=== PATIENT | female | born 1990 | race American Indian/Alaskan Native ===

== ENCOUNTER 2019-06-12 00:11 | Emergency (ER) | payer SELFPAY ==
[2019-06-12 01:18] LABS: Basophils # (Auto) 0.1 K/mm3 (0.0-0.1); Basophils % (Auto) 0.8 % (0.0-1.8); Eosinophils # (Auto) 0.1 K/mm3 (0.0-0.4); Eosinophils % (Auto) 1.2 % (0.0-4.3); Hematocrit 28.2 % (30.3-42.9); Lymphocytes # (Auto) 2.1 K/mm3 (1.2-5.4); Lymphocytes % (Auto) 26.9 % (13.4-35.0); Mean Corpuscular HGB Conc 36 % (30-34); Mean Corpuscular Volume 80 fl (79-97); Monocytes # (Auto) 0.6 K/mm3 (0.0-0.8); Monocytes % (Auto) 7.5 % (0.0-7.3); Platelet Count 227 K/mm3 (140-440); Red Blood Count 3.54 M/mm3 (3.65-5.03); Red Cell Distribution Width 13.9 % (13.2-15.2)
[2019-06-12 01:19] LABS: Bilirubin,Urine NEG (Negative); Blood,Urine NEG (Negative); Color,Urine Yellow (Yellow); Mucus,Urine 1+ /HPF; Protein,Urine <15 mg/dL mg/dL (Negative); Urobilinogen,Urine < 2.0 mg/dL (<2.0)
[2019-06-12 01:40] LABS: Alanine Aminotransferase 6 units/L (7-56); Albumin 3.3 g/dL (3.9-5); BUN/Creatinine Ratio 17; Blood Urea Nitrogen 5 mg/dL (7-17); Calcium 9.2 mg/dL (8.4-10.2); Hemolysis Index 0
[2019-06-12] MEDS ORDERED: ZOFRAN IV ONE (02:48)
[2019-06-12] MEDS ORDERED: NACL 0.9% 1000 ML 1,000 ML IV ONE (02:48)
--- NOTE | 2019-06-12 03:06 | Emergency Department Report ---
ED Abdominal Pain HPI - General Chief Complaint: Abdominal Pain Stated Complaint: ABD PAIN/EMESIS Time Seen by Provider: 06/12/19 02:33 Source: patient Mode of arrival: Ambulatory Limitations: No Limitations - History of Present Illness Initial Comments: pt is a 29-year-old female presents the emergency room with complaints of suprapubic abdominal cramping that began today after eating pizza from [employer]. She states she has associated nausea and vomiting. She states she has had approximately 5 episodes of vomiting. She denies any urinary symptoms, fever, or diarrhea. the patient denies any vaginal bleeding. she does not report any vaginal discharge or vaginal complaints. States her last menstrual cycle was in January but states she is not sure if she is . She states she has a past medical history of mental health issues. pt states she has an allergy to ibuprofen and Maalox. /P:3/A:1 - Related Data Allergies Allergy/AdvReac Type Severity Reaction Status Date / Time ibuprofen [From Motrin] Allergy Vomiting Verified 06/12/19 00:15 maalox Allergy Vomiting Uncoded 06/12/19 00:15 ED Review of Systems ROS: Stated complaint: ABD PAIN/EMESIS Other details as noted in HPI Comment: All other systems reviewed and negative ED Past Medical Hx - Past Medical History Previous Medical History?: Yes Hx Psychiatric Treatment: Yes (anxiety, depression, PTSD, Schizophrenia) - Surgical History Past Surgical History?: Yes Hx Cholecystectomy: Yes Additional Surgical History: Csection x 2 - Social History Smoking Status: Current Every Day Smoker ED Physical Exam - General Limitations: No Limitations General appearance: alert, in no apparent distress - Head Head exam: Present: atraumatic, normocephalic - Eye Eye exam: Present: normal appearance - ENT ENT exam: Present: mucous membranes moist - Respiratory Respiratory exam: Present: normal lung sounds bilaterally. Absent: respiratory distress, wheezes, rales, rhonchi, stridor, accessory muscle use, decreased breath sounds, prolonged expiratory - Cardiovascular Cardiovascular Exam: Present: regular rate, normal rhythm, normal heart sounds. Absent: systolic murmur, diastolic murmur, rubs, gallop - GI/Abdominal GI/Abdominal exam: Present: soft, normal bowel sounds, other (gravid ). Absent: tenderness, guarding, rebound, rigid - Neurological Exam Neurological exam: Present: alert, oriented X3 - Psychiatric Psychiatric exam: Present: normal affect, normal mood - Skin Skin exam: Present: warm, dry, intact ED Course Vital Signs 06/12/19 00:16 Temperature 98.1 F Pulse Rate 103 H Respiratory 18 Rate Blood Pressure 109/72 O2 Sat by Pulse 100 Oximetry ED Medical Decision Making - Lab Data Result diagrams: 06/12/19 01:07 06/12/19 01:07 Lab Results 06/12/19 06/12/19 06/12/19 Range/Units 01:05 01:07 01:07 WBC 7.9 (4.5-11.0) K/mm3 RBC 3.54 L (3.65-5.03) M/mm3 Hgb 10.0 L (10.1-14.3) gm/dl Hct 28.2 L (30.3-42.9) % MCV 80 (79-97) fl MCH 28 (28-32) pg MCHC 36 H (30-34) % RDW 13.9 (13.2-15.2) % Plt Count 227 (140-440) K/mm3 Lymph % (Auto) 26.9 (13.4-35.0) % Bet[place] % (Auto) 7.5 H (0.0-7.3) % Eos % (Auto) 1.2 (0.0-4.3) % Baso % (Auto) 0.8 (0.0-1.8) % Lymph # 2.1 (1.2-5.4) K/mm3 Bethel # 0.6 (0.0-0.8) K/mm3 Eos # 0.1 (0.0-0.4) K/mm3 Baso # 0.1 (0.0-0.1) K/mm3 Seg Neutrophils % 63.6 (40.0-70.0) % Seg Neutrophils # 5.0 (1.8-7.7) K/mm3 Sodium (137-145) mmol/L Potassium (3.6-5.0) mmol/L Chloride (98-107) mmol/L Carbon Dioxide (22-30) mmol/L Anion Gap mmol/L BUN (7-17) mg/dL Creatinine (0.7-1.2) mg/dL Estimated GFR ml/min BUN/Creatinine Ratio % Glucose (65-100) mg/dL Calcium (8.4-10.2) mg/dL Total Bilirubin (0.1-1.2) mg/dL AST (5-40) units/L ALT (7-56) units/L Alkaline Phosphatase (35-129) units/L Total Protein (6.3-8.2) g/dL Albumin (3.9-5) g/dL Albumin/Globulin Ratio % Lipase (13-60) units/L HCG, Qual Positive (Negative) HCG, Quant (0-4) mIU/mL Urine Color Yellow (Yellow) Urine Turbidity Clear (Clear) Urine pH 6.0 (5.0-7.0) Ur Specific Carlisle 1.023 (1.003-1.030) Urine Protein <15 mg/dl (Negative) mg/dL Urine Glucose (UA) Neg (Negative) mg/dL Urine Ketones Neg (Negative) mg/dL Urine Blood Neg (Negative) Urine Nitrite Neg (Negative) Urine Bilirubin Neg (Negative) Urine Urobilinogen < 2.0 (<2.0) mg/dL Ur Leukocyte Esterase Neg (Negative) Urine WBC (Auto) 0.0 (0.0-6.0) /HPF Urine RBC (Auto) 4.0 (0.0-6.0) /HPF U Epithel Cells (Auto) 5.0 (0-13.0) /HPF Urine Mucus 1+ /HPF 06/12/19 06/12/19 Range/Units 01:07 02:50 WBC (4.5-11.0) K/mm3 RBC (3.65-5.03) M/mm3 Hgb (10.1-14.3) gm/dl Hct (30.3-42.9) % MCV (79-97) fl MCH (28-32) pg MCHC (30-34) % RDW (13.2-15.2) % Plt Count (140-440) K/mm3 Lymph % (Auto) (13.4-35.0) % Bethel % (Auto) (0.0-7.3) % Eos % (Auto) (0.0-4.3) % Baso % (Auto) (0.0-1.8) % Lymph # (1.2-5.4) K/mm3 Bethel # (0.0-0.8) K/mm3 Eos # (0.0-0.4) K/mm3 Baso # (0.0-0.1) K/mm3 Seg Neutrophils % (40.0-70.0) % Seg Neutrophils # (1.8-7.7) K/mm3 Sodium 136 L (137-145) mmol/L Potassium 3.4 L (3.6-5.0) mmol/L Chloride 103.7 (98-107) mmol/L Carbon Dioxide 22 (22-30) mmol/L Anion Gap 14 mmol/L BUN 5 L (7-17) mg/dL Creatinine 0.3 L (0.7-1.2) mg/dL Estimated GFR > 60 ml/min BUN/Creatinine Ratio 17 % Glucose 90 (65-100) mg/dL Calcium 9.2 (8.4-10.2) mg/dL Total Bilirubin < 0.20 (0.1-1.2) mg/dL AST 8 (5-40) units/L ALT 6 L (7-56) units/L Alkaline Phosphatase 60 (35-129) units/L Total Protein 6.7 (6.3-8.2) g/dL Albumin 3.3 L (3.9-5) g/dL Albumin/Globulin Ratio 1.0 % Lipase 22 (13-60) units/L HCG, Qual (Negative) HCG, Quant 63174 H (0-4) mIU/mL Urine Color (Yellow) Urine Turbidity (Clear) Urine pH (5.0-7.0) Ur Specific [place] (1.003-1.030) Urine Protein (Negative) mg/dL Urine Glucose (UA) (Negative) mg/dL Urine Ketones (Negative) mg/dL Urine Blood (Negative) Urine Nitrite (Negative) Urine Bilirubin (Negative) Urine Urobilinogen (<2.0) mg/dL Ur Leukocyte Esterase (Negative) Urine WBC (Auto) (0.0-6.0) /HPF Urine RBC (Auto) (0.0-6.0) /HPF U Epithel Cells (Auto) (0-13.0) /HPF Urine Mucus /HPF - Radiology Data Radiology results: report reviewed OB ultrasound FINDINGS: Single fetus is identified in vertex presentation. Cervix measures 3.6 cm and is closed. Placenta is anterior and free of the os. Appropriate measurements reveal an MA of 24 weeks 0 days for an EDC of 10/02/2019. heart rate is 148 bpm. Heart is 4 chambered with no anomalies seen. Amniotic fluid volume is normal at 12.4 cm. No abnormality seen. Signer Name: Js Kapoor MD Signed: 06/12/2019 3:41 AM Workstation Name: [id number] Transcribed By: MARJORIE Dictated By: Js Kapoor MD Electronically Authenticated By: Js Kapoor MD Signed Date/Time: 06/12/19 0341 - Medical Decision Making pt is a 29-year-old female presents the emergency room with complaints of suprapubic abdominal cramping that began today after eating pizza from [employer]. She states she has associated nausea and vomiting. She states she has had approximately 5 episodes of vomiting. She denies any urinary symptoms, fever, or diarrhea. the patient denies any vaginal bleeding. she does not report any vaginal discharge or vaginal complaints. States her last menstrual cycle was in January but states she is not sure if she is . She states she has a past medical history of mental health issues. pt states she has an allergy to ibuprofen and Maalox. /P:3/A:1. VSS. [place] [address]. UA without evidence of UTI. OB US shows Single fetus is identified in vertex presentation. Cervix measures 3.6 cm and is closed. Placenta is anterior and free of the os. Appropriate measurements reveal an MA of 24 weeks 0 days for an EDC of 10/02/2019. heart rate is 148 bpm. Heart is 4 chambered with no anomalies seen. Amniotic fluid volume is normal at 12.4 cm. No abnormality seen. pt given 1L of NS and zofran while in the ED. pt had no further episodes of emesis and was able to tolerate PO intake. discussed with pt to please take a daily vitamin over the counter. drink plenty of fluids. follow up with a [facility] in the next 2-3 days to receive care. return to the emergency room for any new or worsening symptoms. - Differential Diagnosis gastroenteritis, viral syndrome, IUP, UTI Critical care attestation.: If time is entered above; I have spent that time in minutes in the direct care of this critically ill patient, excluding procedure time. ED Disposition Clinical Impression: Abdominal pain Qualifiers: Abdominal location: lower abdomen, unspecified Qualified Code(s): R10.30 - Lower abdominal pain, unspecified Nausea & vomiting Qualifiers: Vomiting type: unspecified Vomiting Intractability: non-intractable Qualified Code(s): R11.2 - Nausea with vomiting, unspecified Qualifiers: Weeks of gestation: 24 weeks Qualified Code(s): Z3A.24 - 24 weeks gestation of Disposition: TO HOME OR SELFCARE Is pt being admited?: No Does the pt Need Aspirin: No Condition: Stable Instructions: (ED), Abdominal Pain (ED) Additional Instructions: Please take a daily vitamin over the counter. drink plenty of fluids. follow up with a [facility] in the next 2-3 days to receive care. return to the emergency room for any new or worsening symptoms. Referrals: [facility] [Provider Group] - 2-3 Days [facility] [Outside] - 2-3 Days [facility] [Provider Group[facility] - 2-3 Days [facility] [Provider Group] - 2-3 Days [facility] [Provider Group] - 2-3 Days Time of Disposition: 04:46 Print Language: PORTUGUESE
--- NOTE | 2019-06-12 03:45 | Ultrasound Report ---
OB ultrasound FINDINGS: Single fetus is identified in vertex presentation. Cervix measures 3.6 cm and is closed. Pl acenta is anterior and free of the os. Appropriate measurements reveal an MA of 24 weeks 0 days for a n EDC of 10/02/2019. heart rate is 148 bpm. Heart is 4 chambered with no anomalies seen. Amniot ic fluid volume is normal at 12.4 cm. No abnormality seen. Signer Name: Js Kapoor MD Signed: 06/12/2019 3:41 AM Workstation Name: [id number]
[2019-06-12 06:05] VITALS: BP 101/50
== END 2019-06-12 06:03 | disposition home or self-care (01) ==
LOC: ED 00:11
DX: O26.892 Other specified pregnancy related conditions, second trimester (principal); R10.30 Lower abdominal pain, unspecified; R11.0 Nausea; O21.9 Vomiting of pregnancy, unspecified; O99.342 Other mental disorders complicating pregnancy, second trimester; F53.1 Puerperal psychosis; F41.9 Anxiety disorder, unspecified; F32.9 Major depressive disorder, single episode, unspecified; F43.10 Post-traumatic stress disorder, unspecified; F20.9 Schizophrenia, unspecified; O99.332 Smoking (tobacco) complicating pregnancy, second trimester; Z88.4 Allergy status to anesthetic agent; Z88.8 Allergy status to other drugs, medicaments and biological substances; Z3A.24 24 weeks gestation of pregnancy
CPT/HCPCS: 36415; 76805; 80053; 81001; 83690; 84702; 84703; 85025; 96361; 96374; 99284; J2405; J7030

== ENCOUNTER 2019-10-21 11:08 | Emergency (ER) | payer MEDICAID ==
[2019-10-21 11:23] VITALS: BP 116/75
--- NOTE | 2019-10-21 11:24 | Event Note ---
ED Screening Note Date of service: 10/21/19 Time: 11:21 ED Screening Note: This is a 29 y.o. F. that presents to the ER with low back pain for 1 day. Denies recent injury. 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 This initial assessment/diagnostic orders/clinical plan/treatment(s) is/are subject to change based on patients health status, clinical progression and re- assessment by fellow clinical providers in the ED. Further treatment and workup at subsequent clinical providers discretion. Patient/guardian urged not to elope from the ED as their condition may be serious if not clinically assessed and managed. Initial orders include: ACC for further evaluation
--- NOTE | 2019-10-21 12:18 | Emergency Department Report ---
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 Patient says pain is worsened with prolonged walking and movement. Patient denies any injuries trauma or falls. Patient denies abdominal pain, pelvic pain, dysuria, fever or any other problems. - Exam Vital Signs: Vital Signs 10/21/19 11:21 Temperature 98.5 F Pulse Rate 106 H Respiratory 20 Rate Blood Pressure 116/75 O2 Sat by Pulse 100 Oximetry MSE screening note: Focused history and physical exam performed. Due to findings the following was ordered: ED Disposition for MSE Clinical Impression: Strain of muscle, fascia and tendon of lower back, initial encounter Disposition: -01 TO HOME OR SELFCARE Is pt being admited?: No Does the pt Need Aspirin: No Condition: Stable Instructions: Muscle Strain (ED) Referrals: [facility] [Outside] - 3-5 Days [facility] [Outside] - 3-5 Days Forms: Work/School Release Form(ED) Time of Disposition: 12:17
== END 2019-10-21 12:41 | disposition home or self-care (01) ==
LOC: ED 11:08
DX: S39.012A Strain of muscle, fascia and tendon of lower back, initial encounter (principal); X58.XXXA Exposure to other specified factors, initial encounter; Y93.89 Activity, other specified; Y92.89 Other specified places as the place of occurrence of the external cause; Y99.8 Other external cause status
CPT/HCPCS: 99282